=== PATIENT | male | born 1960 ===

== ENCOUNTER 2020-12-06 08:46 | Outpatient (REF) | payer OTHER, SELFPAY ==
[2020-12-06 11:31] LABS: Estimated Average Glucose 137 mg/dL; Hemoglobin A1c % 6.4 %
[2020-12-06 11:49] LABS: Alanine Aminotransferase 20 U/L (0-40); Albumin Level 4.3 g/dL (3.5-5.0); Alkaline Phosphatase 78 U/L (39-117); Anion Gap 14 (12-20); Aspartate Amino Transferase 20 U/L (5-37); Bilirubin Total 1.6 mg/dL (0.0-1.0); Blood Urea Nitrogen 19 mg/dL (9-16); Calcium 9.2 mg/dL (8.4-10.2); Carbon Dioxide 28 mmol/L (22-29); Chloride 101 mmol/L (96-108); Cholesterol 114 mg/dL; Estimated Glomerular Filt Rate > 60; Glucose Fasting 108 mg/dL (60-99); HDL Cholesterol 39 mg/dL; LDL Cholesterol Calculated 60 mg/dl; Potassium 4.4 mmol/L (3.3-5.1); Sodium 139 mmol/L (135-145); Total Protein 7.6 g/dL (6.5-8.0); Triglycerides 76 mg/dL
[2020-12-06 11:58] LABS: Prostate Specific Antigen Scr 1.36 ng/mL (<0.05-4.0); TSH reflex Free T4 0.82 uIU/mL (0.32-4.0)
[2020-12-06 12:05] LABS: Creatinine Urine 125.82 mg/dL; Microalbum/Creatinine Ratio Ur 3.9 ug/mg cr
== END 2020-12-06 08:47 | disposition home or self-care (01) ==
LOC: HO.WFDLDS 08:46
PROVIDERS: Visit Provider Family Medicine
DX: Z00.00 Encounter for general adult medical examination without abnormal findings (principal); Z12.5 Encounter for screening for malignant neoplasm of prostate; I10 Essential (primary) hypertension; E11.9 Type 2 diabetes mellitus without complications; E78.5 Hyperlipidemia, unspecified
CPT/HCPCS: 36415; 80053; 80061; 82043; 83036; 84153; 84443

== ENCOUNTER → 2021-01-13 08:35 | Outpatient (BNVA) | payer OTHER, SELFPAY | PROVIDERS: PCP Family Medicine; Referring Provider Family Medicine; Visit Provider Physician Assistant ==

== ENCOUNTER 2022-02-04 08:13 | Outpatient (REF) | payer OTHER, SELFPAY ==
[2022-02-04 11:58] LABS: Prostate Specific Antigen Scr 1.17 ng/mL (<0.05-4.0); TSH reflex Free T4 0.78 uIU/mL (0.32-4.0)
[2022-02-04 12:07] LABS: Alanine Aminotransferase 20 U/L (0-40); Albumin Level 4.1 g/dL (3.5-5.0); Alkaline Phosphatase 80 U/L (39-117); Anion Gap 11 (12-20); Aspartate Amino Transferase 18 U/L (5-37); Bilirubin Total 1.5 mg/dL (0.0-1.0); Blood Urea Nitrogen 21 mg/dL (9-16); Calcium 9.8 mg/dL (8.4-10.2); Carbon Dioxide 26 mmol/L (22-29); Chloride 104 mmol/L (96-108); Cholesterol 125 mg/dL; Estimated Glomerular Filt Rate > 60; Glucose Fasting 121 mg/dL (60-99); HDL Cholesterol 38 mg/dL; LDL Cholesterol Calculated 71 mg/dl; Potassium 4.4 mmol/L (3.3-5.1); Sodium 137 mmol/L (135-145); Total Protein 7.5 g/dL (6.5-8.0); Triglycerides 81 mg/dL
[2022-02-04 12:26] LABS: Creatinine Urine 163.41 mg/dL; Microalbum/Creatinine Ratio Ur 4.2 ug/mg cr
== END 2022-02-04 08:14 | disposition home or self-care (01) ==
LOC: HO.WFDLDS 08:13
PROVIDERS: Visit Provider Family Medicine
DX: Z00.00 Encounter for general adult medical examination without abnormal findings (principal); Z12.5 Encounter for screening for malignant neoplasm of prostate; I10 Essential (primary) hypertension
CPT/HCPCS: 36415; 80053; 80061; 82043; 84153; 84443

== ENCOUNTER 2023-07-23 12:05 | Outpatient (AMB) | payer OTHER, SELFPAY ==
[2023-07-23 12:13] VITALS: BMI 29.1
--- NOTE | 2023-07-23 12:13 | A.OFFPC_ITS ---
Vital Signs 07/23/23 12:13 Height 5 ft 7 in Weight 186 lb 2 oz BMI 29.1 Intake Visit Reasons: CPE Intake Note: Patient is here for his physical today. Patient is complaining of pain in his hands, and cramping in his legs. Allergies penicillin G Allergy (Unknown, Verified 07/23/23 12:15) Unknown Hayfebrol Allergy (Unknown, Uncoded 07/23/23 12:15) Unknown Tobacco use date assessed: 01/26/22 Fall risk assessment: No Falls in past year Last assessed Fall Risk: 07/23/23 Dental Screening Dental Screen Date: 07/23/23 Did you have a dental visit in the last 12 months?: No Did you have a dental problem in the last 6 months where you did not have access to dental care?: No Was dental information given to patient?: Patient declined HPI CPE HPI Details 63 y/o male presents for a CPE with f/u labs and health maintenance. No recent labs to review. A1c today 07/23/23 is 6.2%. He is on metformin 500mg daily. Pt has complaints of hand pain and leg cramps. He notes he has never had a colonoscopy. Pt has complaints of toenail fungus. [facility] Surgical History (Updated 03/10/22 @ 09:21 by Terri Zapata) History of vasectomy Family History Mother No problems noted. Father No problems noted. 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 Quinn Pineda, Marcie Salcedo, Vu Hooker and colleagues, with an educational oprsha from [employer]. Review of Systems Const Denies chills, Denies fatigue, Denies fever(s), Denies headache(s) and Denies weakness Eyes Denies change in vision ENT Denies dizziness, Denies headache(s), Denies hearing loss, Denies nasal congestion, Denies sinus pain, Denies sinus pressure and Denies sore throat Card Denies chest pain, Denies lightheadedness, Denies dyspnea and Denies other (palpitations) Resp Denies cough, Denies dyspnea and Denies wheezing GI Denies abdominal pain, Denies melena, Denies hematochezia, Denies change in bowel habits, Denies dyspepsia and Denies nausea Denies hematuria and Denies dysuria Musc Denies abnormal gait, Denies myalgias, Denies arthralgias, Denies numbness and Denies tingling Skin/Breast Denies rash, Denies unusual bruising and Denies wounds Neuro Denies abnormal gait, Denies dizziness, Denies headache(s), Denies memory loss, Denies numbness, Denies Sensory deficit (Neuro), Denies tingling and Denies weakness Psych Denies anxiety, Denies depression and Denies memory loss Endo Denies cold intolerance, Denies fatigue, Denies heat intolerance, Denies polydipsia and Denies polyuria Leonel/Lymph Denies easy bleeding and Denies easy bruising Aller/Immun Denies wheezing Physical exam (Primary Care) BMI result Body Mass Index 29.1 Tobacco/Smoking Status: Tobacco use Status Tobacco use date assessed 01/26/22 07/23/23 12:19 Patient Tobacco Use Status Current someday Tobacco 07/23/23 12:19 e-Cigarette/Vaping Use Never Used 07/23/23 12:19 Const General: no acute distress, well developed, alert and awake Nutritional Appearance: well nourished Orientation/consciousness: patient oriented x3 HENMT Head: Yes normocephalic and Yes atraumatic Ears: hearing grossly normal bilaterally and TM's normal bilaterally General nose exam: Normal external nose present and Normal nares present Mouth: Normal oral and palatal mucosa present and moist mucous membranes Teeth and gingiva: dentition normal Throat: Yes posterior oropharynx normal Eyes General: appearance normal, both eyes and all related structures Pupils: Equal, round and reactive pupils present and Pupil accommodation reflex normal EOM: EOMs intact bilaterally Neck Neck: Yes normal visual inspection, Yes no lymphadenopathy and Yes trachea midline Thyroid: Thyroid normal Carotids: no bruits Lymphatic: no lymphadenopathy noted Chest Chest palpation & inspection: normal inspection of the chest Resp Effort & Inspection: normal respiratory effort Auscultation: clear to auscultation bilaterally Cardio Rate: regular rate Rhythm: regular rhythm Heart sounds: S1 normal heart sound present, S2 normal heart sound present, no gallops, no murmurs and no rubs Bruits: no abdominal aortic bruits and no carotid bruits GI Palpation (GI): No Abdominal aortic bruit present, Soft to palpation, nontender, No hepatosplenomegaly present and No Rebound tenderness present Auscultation: normal bowel sounds General: Yes no CVA tenderness Back/Spine/Pelvis Back: no CVA tenderness Cervical Spine: cervical ROM normal and No Cervical spine tenderness Thoracic/Lumbar Spine: thoraco-lumbar ROM normal, No pain with thoraco-lumbar ROM, No thoracic spinal tenderness and No lumbar spinal tenderness Skin Lesions: no lesions Rashes: no rashes Trauma: no lacerations or abrasions Wounds: no wounds Nails: normal Neuro General: patient oriented x3 Cranial nerves: Yes Equal, round and reactive pupils present Cognition (Neuro): normal cognition Gait exam (Neuro): Normal gait present Motor exam (neuro): 5/5 motor strength present throughout Sensory Exam: No Sensory deficit (Neuro) Deep tendon reflexes (DTR's): Right patellar reflex intensity grade: 2+ and Left patellar reflex intensity grade: 2+ Extrem Other: Mildly positive phalens test of wrist General: Yes normal to inspection and No edema Psych Appearance: grossly normal Affect: normal affect Attitude: cooperative Thought process: Normal thought process present Results AMB Hemoglobin A1c AMB Hemoglobin A1c 6.2 % Last Edit by Lovely Mcpherson CMA on 07/23/23 12:36 Results Reviewed Results Reviewed: Laboratory Last Values Hgb A1c (Clinic) 6.2 % (4.0-6.0) H 07/23/23 12:34 Assessment and Plan Assessment & Plan (1) Annual physical exam: Code(s): Z00.00 - Encounter for general adult medical examination without abnormal findings Plan: 63-year-old?male?presents?for?complete?physical?exam (2) Diabetes type 2, controlled: Code(s): E11.9 - Type 2 diabetes mellitus without complications Plan: A1c?6.2%.??Good?control.??Goal?is?less?than?7.0% Continue?current?medication?regimen Diabetic?eye?exam?in?May?showed?no?diabetic?retinopathy (3) Essential hypertension: Code(s): I10 - Essential (primary) hypertension Plan: Blood?pressure?116/58.??Good?control.??Goal?is?less?than?140/90 Continue?current?medication?regimen (4) Leg cramps: Code(s): R25.2 - Cramp and spasm Plan: Likely?secondary?to?overuse?and?muscular?strain Checking?labs?to?rule?out?electrolyte?or?metabolic?or?inflammatory?causes If?labs?negative?and?symptoms?persist,?recommended?physical?therapy (5) Hand pain: Code(s): M79.643 - Pain in unspecified hand Plan: Bilatera l?hand?wrist?discomfort?while?sleeping.??Patient?notes?that?he?hyperflexes?his?h ands?while?sleeping Phalen's?test?mildly?positive Likely?some?carpal?tunnel Gave?him?bilateral?wrist?braces?which?he?can ?wear?loosely?to?prevent?flexion?at?the?wrist If?not?improving,?will?refer?to?hand?surgery (6) Toenail fungus: Code(s): B35.1 - Tinea unguium Plan: Trial?terbinafine?cream (7) Screening for colon cancer: Code(s): Z12.11 - Encounter for screening for malignant neoplasm of colon Plan: Referred?to?GI (8) Screening for prostate cancer: Code(s): Z12.5 - Encounter for screening for malignant neoplasm of prostate Plan: Check?PSA Orders: Orders AMB Hemoglobin A1c Today Z13.9 - Encounter for screening, unspecified Lipid Panel Today Z00.00 - Encounter for general adult medical examination without abnormal findings Prostate Specific Antigen Scr Today Z12.5 - Encounter for screening for malignant neoplasm of prostate UA and rflx microscopic Today Z00.00 - Encounter for general adult medical examination without abnormal findings Erythrocyte Sedimentation Rate Today R25.2 - Cramp and spasm Comprehensive [place]. Panel Fast Today Z00.00 - Encounter for general adult medical examination without abnormal findings Microalbumin, Random (w Creat) Today I10 - Essential (primary) hypertension TSH reflex Free T4 Today Z00.00 - Encounter for general adult medical examination without abnormal findings Referrals Gastroenterology Referral Z12.11 - Encounter for screening for malignant neoplasm of colon Medications: New terbinafine HCl 1% (Athlete's Foot (terbinafine)) 1 appl topical BID 30 grams 2RF 30 days Coding Level of Care Code Est Pt Level 3 (74112) Est Pt Prev Care 40-64y(39522) Diagnoses Annual physical exam Z00.00 Diabetes type 2, controlled E11.9 Essential hypertension I10 Leg cramps R25.2 Hand pain M79.643 Toenail fungus B35.1 Screening for colon cancer Z12.11 Screening for prostate cancer Z12.5
== END 2023-07-23 13:48 | disposition home or self-care (01) ==
PROVIDERS: PCP Family Medicine; Visit Provider Family Medicine
DX: Z00.00 Encounter for general adult medical examination without abnormal findings (principal); E11.9 Type 2 diabetes mellitus without complications; I10 Essential (primary) hypertension; R25.2 Cramp and spasm; M79.641 Pain in right hand; B35.1 Tinea unguium; M79.642 Pain in left hand
CPT/HCPCS: 83036; 99213; 99396

== ENCOUNTER 2023-08-31 07:54 | Outpatient (REF) | payer OTHER, SELFPAY ==
[2023-08-31 11:32] LABS: Appearance Urine Turbid; Color Urine Yellow; Glucose Urine UA Negative (Negative); Leukocyte Esterase Urine Negative (Negative); Nitrite Urine Negative (Negative); Urine Blood Negative (Negative); Urine Ketones Negative (Negative); Urine Protein Negative (Neg-Trace)
[2023-08-31 12:03] LABS: Prostate Specific Antigen Scr 1.59 ng/mL (<0.05-4.0)
[2023-08-31 12:09] LABS: Erythrocyte Sedimentation Rate 22 MM/HR (0-15)
[2023-08-31 12:17] LABS: Creatinine Urine 170.02 mg/dL; Microalbum/Creatinine Ratio Ur 8.2 ug/mg cr (<30)
[2023-08-31 12:20] LABS: Alanine Aminotransferase 22 U/L (0-40); Alkaline Phosphatase 85 U/L (39-117); Anion Gap 14 (12-20); Aspartate Amino Transferase 26 U/L (5-37); Blood Urea Nitrogen 21 mg/dL (9-16); Calcium 9.2 mg/dL (8.4-10.2); Carbon Dioxide 26 mmol/L (22-29); Chloride 105 mmol/L (96-108); Cholesterol 100 mg/dL (<200); Estimated Glomerular Filt Rate > 60; Glucose Fasting 104 mg/dL (60-99); HDL Cholesterol 38 mg/dL (>40); LDL Cholesterol Calculated 49 mg/dL (<100); Potassium 3.9 mmol/L (3.3-5.1); Sodium 141 mmol/L (135-145); Total Protein 7.6 g/dL (6.5-8.0); Triglycerides 68 mg/dL (<150)
[2023-08-31 13:24] LABS: TSH reflex Free T4 0.97 uIU/mL (0.32-4.0)
== END 2023-08-31 07:55 | disposition home or self-care (01) ==
LOC: HO.WFDLDS 07:54
PROVIDERS: Visit Provider Family Medicine
DX: Z00.00 Encounter for general adult medical examination without abnormal findings (principal); Z12.5 Encounter for screening for malignant neoplasm of prostate; I10 Essential (primary) hypertension; R25.2 Cramp and spasm
CPT/HCPCS: 36415; 80053; 80061; 81003; 82043; 82570; 84153; 84443; 85652

== ENCOUNTER 2023-09-16 16:37 | Outpatient (AMB) | payer OTHER, SELFPAY ==
--- NOTE | 2023-09-16 16:41 | MHC.PC.OV ---
Intake Visit Reasons: follow up cpe lab, [phone] Allergies penicillin G Allergy (Unknown, Verified 07/23/23 12:15) Unknown Tobacco use date assessed: 09/16/23 HPI follow up cpe lab, [phone] HPI Details Telemedicine?encounter?to?follow-up?on?carpal?tunnel?and?review?lab Reviewed?labs?with?patient: Mild?HDL?depression.??Encouraged?exercise Lipids?otherwise?show?good?control His?other?labs?were?okay He?has?been?wearing?wrist?braces?and?symptoms?are?controlled?with?this. No?new?complaint PFSH Surgical History History of vasectomy Family History Mother No problems noted. Father No problems noted. 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 Quinn Pineda, Marcie Salcedo, Vu Hooker and colleagues, with an educational porsha from [employer]. Review of Systems Const Denies chills, Denies fatigue, Denies fever(s), Denies headache(s) and Denies weakness ENT Denies dizziness and Denies headache(s) Card Denies chest pain, Denies lightheadedness, Denies dyspnea and Denies other (Palpitations) Resp Denies cough, Denies dyspnea, Denies wheezing and Denies other ( shortness of breath) Musc Denies numbness and Denies tingling Neuro Denies dizziness, Denies headache(s), Denies numbness, Denies tingling, Denies paresthesias and Denies weakness Psych Denies anxiety and Denies depression Endo Denies fatigue Aller/Immun Denies wheezing Physical exam (Primary Care) Tobacco/Smoking Status: Tobacco use Status Tobacco use date assessed 09/16/23 09/16/23 16:44 Patient Tobacco Use Status Current someday Tobacco 09/16/23 16:44 e-Cigarette/Vaping Use Never Used 09/16/23 16:44 Const Other: Telemedicine.??No?exam Telehealth Telehealth Location of provider rendering services: practice address Location of patient: address on file Patient Identification confirmed using: Name, : Yes Telehealth method: voice only Patient verbally consented to treatment: Yes Patient verbally consented to billing insurance company: Yes Minutes spent on Phone/Video with Pt.: 5 Assessment and Plan Assessment & Plan (1) Carpal tunnel syndrome, bilateral: Code(s): G56.03 - Carpal tunnel syndrome, bilateral upper limbs Plan: Much?improved?with?wrist?braces. Continue?wrist?braces.??He?can?let?me?know?if?anything?changes. (2) Diabetes type 2, controlled: Code(s): E11.9 - Type 2 diabetes mellitus without complications Plan: A1c?showed?good?control?at?last?check. Continue?current?medication?regimen Follow-up?in?3 mos (3) Hyperlipidemia: Code(s): E78.5 - Hyperlipidemia, unspecified Plan: He?is?on?atorvastatin?and?lipids?show?good?control?except?HDL?is?mildly?low Encouraged?increased?exercise Coding Level of Care Code Tele Est Pt Level 2 (35599) Diagnoses Carpal tunnel syndrome, bilateral G56.03 Diabetes type 2, controlled E11.9 Hyperlipidemia E78.5
== END 2023-09-16 17:00 ==
PROVIDERS: PCP Family Medicine; Visit Provider Family Medicine
DX: G56.03 Carpal tunnel syndrome, bilateral upper limbs (principal); E11.9 Type 2 diabetes mellitus without complications; E78.5 Hyperlipidemia, unspecified
CPT/HCPCS: 99212

== ENCOUNTER 2023-12-09 08:25 | Outpatient (AMB) | payer OTHER, SELFPAY ==
--- NOTE | 2023-12-09 08:29 | A.OFFPC_ITS ---
Vital Signs 12/09/23 08:33 Height 5 ft 7 in Weight 182 lb BMI 28.5 BP 118/70 Blood Pressure Location Rt brachial Position Sitting Respiration 14 Pulse 62 Pulse Source Pulse Oximeter Temp 98.1 F Temp Source Oral Pulse Oximetry (%) 98 Oxygen Delivery Method Room Air Intake Visit Reasons: Follow-up?diabetes Intake Note: Follow up diabetes Night Nurse Required: No Allergies penicillin G Allergy (Unknown, Verified 12/09/23 08:29) Unknown Tobacco use date assessed: 12/09/23 Dental Screening Dental Screen Date: 12/09/23 Did you have a dental visit in the last 12 months?: Yes Did you have a dental problem in the last 6 months where you did not have access to dental care?: Yes Was dental information given to patient?: Patient has dentist HPI Follow-up?diabetes HPI Details Patient?presents?to?follow-up?diabetes He?notes?that?he?has?been?eating?more?starchy?foods?like?rice?and?potatoes. No?changes?in?his?activity?level He?is?taking?his?metformin?500?mg?once?a?day?as?prescribed A1c?increased?from?6.6%?to?7.6% PFSH Surgical History History of vasectomy Family History Mother No problems noted. Father No problems noted. 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 1. Little interest or pleasure in doing things: not at all 2. Feeling down, depressed, or hopeless: not at all 3. Trouble falling or staying asleep, or sleeping too much: not at all 4. Feeling tired or having little energy: not at all 5. Poor appetite or overeating: not at all 6. Feeling bad about yourself - or that you are a failure or have let yourself or your family down: not at all 7. Trouble concentrating on things, such as reading the newspaper or watching television: not at all 8. Moving or speaking so slowly that other people could have noticed. Or the opposite - being so fidgety or restless that you have been moving around a lot more than usual: not at all 9. Thoughts that you would be better off or of hurting yourself in some way: not at all Total score: 0 Depression Screening Interpretation: Negative Depression Screening Done: Yes 12958 - PHQ-9 Billing: Yes Source: Developed by Drs. Quinn Pineda, Marcie Salcedo, Vu Hooker and colleagues, with an educational porsha from [email or web address]. Thrive Questionnaire Date Thrive assessed: 12/09/23 I am a: Patient What is your living situation today?: I have a steady place to live Within the past 12 months, did the food you bought not last and you didn't have the money to get more?: Never true Within the past 12 months, did you worry whether your food would run out before you got money to buy more?: Never true Do you have trouble paying for medicines?: No Do you have trouble getting transportation to medical appointments?: No Do you have trouble paying your heating and electricity bill?: No Do you have trouble taking care of your child, family member or friend?: No Do you have trouble with day-to-day activities such as bathing, preparing meals, shopping, managing finances, etc.?: No Are you currently unemployed and looking for a job?: No Are you interested in more education?: No Please select the resources that you would like help with: Education Currently or been in a relationship where the following occur: no concerns reported THRIVE Score: 0 AUDIT C Alcohol Use Questionnaire (AUDIT-C) 1. How often do you have a drink containing alcohol?: Monthly or less 2. How many drinks containing alcohol do you have on a typical day when you are drinking?: 3 or 4 3. How often do you have six or more drinks on one occasion?: Less than monthly Total Score: 3 GRAYSON-7 AMB Questionnaire GRAYSON-7 Date GRAYSON - 7 assessed: 12/09/23 Feeling nervous, anxious, or on edge: 0 = Not at all Not being able to stop or control worryin = Not at all Worrying too much about different things: 0 = Not at all Trouble relaxin = Not at all Being so restless that it is hard to sit still: 0 = Not at all Becoming easily annoyed or irritable: 0 = Not at all Feeling afraid as if something awful might happen: 0 = Not at all Total GRAYSON-7 score (0-4 normal; 5-9 mild; 10-14 moderate; 15-21 severe): 0 Source: Developed by Drs. Quinn Pineda, Marcie Salcedo, Vu Hooker and colleagues, with an educational porsha from [email or web address]. GRAYSON-7 Assessment Billing GRAYSON-7 Assessment Tool: GRAYSON-7 Assessment 64994 Physical exam (Primary Care) Vital Signs: Last Vital Signs Temp 98.1 F 12/09/23 08:33 Pulse 62 12/09/23 08:33 Resp 14 12/09/23 08:33 BP 118/70 12/09/23 08:33 Pulse Ox 98 12/09/23 08:33 Oxygen Delivery Method Room Air 12/09/23 08:33 BMI result Body Mass Index 28.5 Tobacco/Smoking Status: Tobacco use Status Tobacco use date assessed 12/09/23 12/09/23 08:38 Patient Tobacco Use Status Current someday Tobacco 12/09/23 08:38 e-Cigarette/Vaping Use Never Used 12/09/23 08:38 PHQ-9: PHQ-9 Score PHQ-9: Total score 0 12/09/23 08:47 Depression Screening Interpretation: Negative Thrive Assessment: Date of Thrive Assessment Date Thrive assessed 12/09/23 12/09/23 08:47 Currently or been in a relationship where the following occur: no concerns reported Results AMB Hemoglobin A1c AMB Hemoglobin A1c 7.6 % Last Edit by Miranda Marcos CMA on 12/09/23 08:51 Assessment and Plan Assessment & Plan (1) Diabetes type 2, controlled: Code(s): E11.9 - Type 2 diabetes mellitus without complications Plan: A1c?increased?from?6.6%?to?7.6%.??Goal?is?less?than?7.0% Will?increase?metformin?to?500?mg?b.i.d. Work?on?a?diet?lower?in?sugars?and?starches Will?follow-up?in?3?months Last?eye?exam?was?in?May.??Advised?to?follow-up?w ith?ophthalmology?annually Orders: Orders AMB Hemoglobin A1c Today E11.9 - Type 2 diabetes mellitus without complications Coding Level of Care Code Est Pt Level 3 (15586) Diagnoses Diabetes type 2, controlled E11.9 Additional Codes GRAYSON-7 Assessment Billing - GRAYSON-7 Assessment Tool: GRAYSON-7 Assessment [id number] ([id number])
[2023-12-09 08:33] VITALS: BP 118/70; PULSE 62; RESP 14; TEMP 36.7; O2SAT 98; BMI 28.5
== END 2023-12-09 08:59 | disposition home or self-care (01) ==
PROVIDERS: PCP Family Medicine; Visit Provider Family Medicine
DX: E11.9 Type 2 diabetes mellitus without complications (principal)
CPT/HCPCS: 83036; 99213

== ENCOUNTER 2024-02-21 09:26 | Outpatient (AMB) | payer OTHER, SELFPAY ==
[2024-02-21 09:33] VITALS: BP 118/74; PULSE 67; O2SAT 97; BMI 28.7
--- NOTE | 2024-02-21 09:33 | MHC.PC.OV ---
Vital Signs 02/21/24 09:33 Height 5 ft 7 in Weight 183 lb 6 oz BMI 28.7 BP 118/74 Blood Pressure Location Lt brachial Position Sitting Pulse 67 Pulse Source Pulse Oximeter Pulse Oximetry (%) 97 Oxygen Delivery Method Room Air Intake Visit Reasons: 4 month f/u Intake Note: Patient is here for follow up on diabetes today. Allergies penicillin G Allergy (Unknown, Verified 02/21/24 09:34) Unknown hayfever Allergy (Mild, Uncoded 02/21/24 09:35) sneezing, watery eyes. Medication List - Last Reconciled 02/21/24 by Bill Hollis MD atorvastatin 20 mg PO DAILY 90 days lisinopril-hydrochlorothiazide 20-12.5 mg 2 tabs PO DAILY metformin 500 mg PO DAILY 90 days terbinafine HCl 1% (Athlete's Foot (terbinafine)) 1 appl topical BID 30 days Tobacco use date assessed: 02/21/24 Fall risk assessment: No Falls in past year Last assessed Fall Risk: 02/21/24 Dental Screening Dental Screen Date: 12/09/23 Did you have a dental visit in the last 12 months?: Yes Did you have a dental problem in the last 6 months where you did not have access to dental care?: No Was dental information given to patient?: Patient has dentist HPI 4 month f/u HPI Details 63 y/o male presents to f/u diabetes. Last A1c 12/09/23 7.6%. Had increased his metformin to 500mg b.i.d. and encouraged him to work on a diet lower in sugars and starches. He notes he has not received the b.i.d. dosing. A1c today improved to 6.7%. He states he has been exercising more and has been trying to watch his diet. HPI Comments History of Present Illness Details Documentation assistance for Bill Hollis MD, was provided by Marty Buenrostro, [employer] on 02/21/2024 at 10:13 AM KATHLEEN. Wade, Dr. Hollis, have read, observed, and verified documentation. [facility] Surgical History History of vasectomy Family History Mother No problems noted. Father No problems noted. 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 Quinn Pnieda, Mracie Salcedo, Vu Hooker and colleagues, with an educational porsha from [employer]. Review of Systems Const Denies chills, Denies fatigue, Denies fever(s), Denies headache(s) and Denies weakness ENT Denies dizziness and Denies headache(s) Card Denies dyspnea Resp Denies cough, Denies dyspnea, Denies wheezing and Denies other (shortness of breath) Musc Denies numbness and Denies tingling Neuro Denies dizziness, Denies headache(s), Denies numbness, Denies tingling and Denies weakness Psych Denies anxiety and Denies depression Endo Denies fatigue Aller/Immun Denies wheezing Physical exam (Primary Care) Vital Signs: Last Vital Signs Pulse 67 02/21/24 09:33 BP 118/74 02/21/24 09:33 Pulse Ox 97 02/21/24 09:33 Oxygen Delivery Method Room Air 02/21/24 09:33 BMI result Body Mass Index 28.7 Tobacco/Smoking Status: Tobacco use Status Tobacco use date assessed 02/21/24 02/21/24 09:36 Patient Tobacco Use Status Current someday Tobacco 02/21/24 09:36 e-Cigarette/Vaping Use Never Used 02/21/24 09:36 Thrive Assessment: Date of Thrive Assessment Date Thrive assessed 12/09/23 02/21/24 09:36 Const General: well developed; No acute distress Nutritional Appearance: well nourished Orientation/consciousness: patient oriented x3 HENMT Head: Yes normocephalic and Yes atraumatic Eyes General: appearance normal, both eyes and all related structures Pupils: Equal, round and reactive pupils present EOM: EOMs intact bilaterally Resp Effort & Inspection: normal respiratory effort Auscultation: clear to auscultation bilaterally Cardio Rate: regular rate Rhythm: regular rhythm Heart sounds: S1 normal heart sound present, S2 normal heart sound present, no gallops, no murmurs and no rubs Neuro General: patient oriented x3 and gait normal Cranial nerves: Yes Equal, round and reactive pupils present Psych Affect: normal affect Results AMB Hemoglobin A1c AMB Hemoglobin A1c 6.7 % Last Edit by Lovely Mcpherson CMA on 02/21/24 10:11 Assessment and Plan Assessment & Plan (1) Diabetes type 2, controlled: Code(s): E11.9 - Type 2 diabetes mellitus without complications Plan: Change?in?medication?was?not?made. Patient?is?still?taking?metformin?500?mg?daily He?made?lifestyle?changes?as?discussed?at?last?visit A1c?now?6.7%?and?goal?is?less?than?7.0% Continue?current?medication?regimen Continue?diabetic?diet,?exercise?and?weight?loss (2) Essential hypertension: Code(s): I10 - Essential (primary) hypertension Plan: Blood?pressure?is?well?controlled.??Goal?is?less?than?140/90 Continue?current?medications Orders: Orders AMB Hemoglobin A1c Today Z13.9 - Encounter for screening, unspecified Coding Level of Care Code Est Pt Level 3 (56606) Diagnoses Diabetes type 2, controlled E11.9 Essential hypertension I10
== END 2024-02-21 10:19 | disposition home or self-care (01) ==
PROVIDERS: PCP Family Medicine; Visit Provider Family Medicine
DX: E11.9 Type 2 diabetes mellitus without complications (principal); I10 Essential (primary) hypertension
CPT/HCPCS: 83036; 99213

== ENCOUNTER 2024-05-24 09:28 | Outpatient (AMB) | payer OTHER, SELFPAY ==
--- NOTE | 2024-05-24 09:40 | A.OFFPC_ITS ---
Vital Signs 05/24/24 09:43 Height 5 ft 7 in Weight 184 lb 8 oz BMI 28.9 BP 100/60 Blood Pressure Location Lt brachial Position Sitting Respiration 12 Pulse 63 Pulse Source Pulse Oximeter Temp 97.7 F Temp Source Tympanic Pulse Oximetry (%) 97 Oxygen Delivery Method Room Air Intake Visit Reasons: f/u diabetes, hypertension Intake Note: F/U for DM and HTN Allergies penicillin G Allergy (Unknown, Verified 05/24/24 09:41) Unknown hayfever Allergy (Mild, Uncoded 02/21/24 09:35) sneezing, watery eyes. Medication List - Last Reconciled 05/24/24 by Bill Hollis MD atorvastatin 20 mg PO DAILY 90 days lisinopril-hydrochlorothiazide 20-12.5 mg 2 tabs PO DAILY metformin 500 mg PO DAILY 90 days terbinafine HCl 1% (Athlete's Foot (terbinafine)) 1 appl topical BID 30 days Tobacco use date assessed: 02/21/24 Dental Screening Dental Screen Date: 12/09/23 HPI f/u diabetes, hypertension HPI Details 64 y/o male presents to f/u diabetes, hy pertension. Last A1c 02/21/24 6.7%. He is on metformin 500mg daily. A1c today 05/24/24 7.2%. Recent diabetic eye exam 2022. Blood pressure today 100/60, 63p. He is on lisinopril-HCTZ 20-12.5mg daily. Has complaints of some ED. HPI Comments History of Present Illness Details Documentation assistance for Bill Hollis MD, was provided by Marty Buenrostro, Electrical Equipment Assembler on 05/24/2024 at 10:[address] Telma CROWE, have read, observed, and verified documentation. [facility] Surgical History History of vasectomy Family History Mother No problems noted. Father No problems noted. 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 How many drinks containing alcohol do you have on a typical day when you are drinking?: 3 or 4 3. How often do you have six or more drinks on one occasion?: Less than monthly Total Score: 2 GRAYSON-7 AMB Questionnaire GRAYSON-7 Date GRAYSON - 7 assessed: 12/09/23 Source: Developed by Drs. Quinn Pineda, Marcie Salcedo, Vu Hooker and colleagues, with an educational porsha from [employer]. Review of Systems Const Denies chills, Denies fatigue, Denies fever(s), Denies headache(s) and Denies weakness ENT Denies dizziness and Denies headache(s) Card Denies dyspnea Resp Denies cough, Denies dyspnea, Denies wheezing and Denies other (shortness of breath) Musc Denies numbness and Denies tingling Neuro Denies dizziness, Denies headache(s), Denies numbness, Denies tingling and Denies weakness Psych Denies anxiety and Denies depression Endo Denies fatigue Aller/Immun Denies wheezing Physical exam (Primary Care) Vital Signs: Last Vital Signs Temp 97.7 F 05/24/24 09:43 Pulse 63 05/24/24 09:43 Resp 12 05/24/24 09:43 BP 100/60 05/24/24 09:43 Pulse Ox 97 05/24/24 09:43 Oxygen Delivery Method Room Air 05/24/24 09:43 BMI result Body Mass Index 28.9 Tobacco/Smoking Status: Tobacco use Status Tobacco use date assessed 02/21/24 05/24/24 09:45 Patient Tobacco Use Status Current someday Tobacco 05/24/24 09:45 e-Cigarette/Vaping Use Never Used 05/24/24 09:45 Thrive Assessment: Date of Thrive Assessment Date Thrive assessed 12/09/23 05/24/24 09:45 Const General: well developed; No acute distress Nutritional Appearance: well nourished Orientation/consciousness: patient oriented x3 HENMT Head: Yes normocephalic and Yes atraumatic Eyes General: appearance normal, both eyes and all related structures Pupils: Equal, round and reactive pupils present EOM: EOMs intact bilaterally Resp Effort & Inspection: normal respiratory effort Auscultation: clear to auscultation bilaterally Cardio Rate: regular rate Rhythm: regular rhythm Heart sounds: S1 normal heart sound present, S2 normal heart sound present, no gallops, no murmurs and no rubs Neuro General: patient oriented x3 and gait normal Cranial nerves: Yes Equal, round and reactive pupils present Psych Affect: normal affect Assessment and Plan Assessment & Plan (1) Diabetes type 2, controlled: Code(s): E11.9 - Type 2 diabetes mellitus without complications Plan: A1c?has?climbed?to?7.2%.??Suboptimal?control.??Goal?is?less?than?7.0% Will?increase?metformin?from?500?mg?daily?to?500?mg?a.m.?and?250?mg?p.m. Continue?to?work?at?diabetic?diet (2) Essential hypertension: Code(s): I10 - Essential (primary) hypertension Plan: Blood?pressure?is?controlled.??Goal?is?less?than?140/90 Continue?current?medications Hydrate?well (3) Erectile dysfunction: Code(s): N52.9 - Male erectile dysfunction, unspecified Plan: Can?try?sildenafil (4) Leg pain: Code(s): M79.606 - Pain in leg, unspecified Plan: Left?knee?pain?over?LCL Keep?quadriceps?strong Ice/heat NSAIDs If?not?improving?will?image?and?start physical?therapy Medications: New sildenafil administer 30 minutes to 4 hours before activity 50 mg PO DAILY 30 days PRN 6 tabs 3RF sexual activity Refilled metformin One?tab (500mg)?in?a.m.?and?1/2?tab?(250mg) in?p.m. orally daily orally daily; 90 days 90 tabs 3RF Coding Level of Care Code Est Pt Level 4 (85861) Diagnoses Diabetes type 2, controlled E11.9 Essential hypertension I10 Erectile dysfunction N52.9 Leg pain M79.606
[2024-05-24 09:43] VITALS: BP 100/60; PULSE 63; RESP 12; TEMP 36.5; O2SAT 97; BMI 28.9
== END 2024-05-24 10:24 | disposition home or self-care (01) ==
PROVIDERS: PCP Family Medicine; Visit Provider Family Medicine
DX: E11.9 Type 2 diabetes mellitus without complications (principal); I10 Essential (primary) hypertension; N52.9 Male erectile dysfunction, unspecified; M79.606 Pain in leg, unspecified
CPT/HCPCS: 99214

== ENCOUNTER 2024-08-18 07:50 | Outpatient (REF) | payer OTHER, SELFPAY ==
[2024-08-18 10:57] LABS: MANUAL DIFF FLAG NO
[2024-08-18 11:03] LABS: Appearance Urine Clear; Color Urine Yellow; Glucose Urine UA Negative (Negative); Leukocyte Esterase Urine Negative (Negative); Nitrite Urine Negative (Negative); Urine Blood Negative (Negative); Urine Ketones Negative (Negative); Urine Protein Negative (Neg-Trace)
[2024-08-18 11:04] LABS: Basophils Absolute Auto 0.1 X10*3/uL (0.0-0.2); Basophils Percent Auto 0.6 % (0-2); Eosinophils Absolute Auto 0.3 X10*3/uL (0.0-0.4); Eosinophils Percent Auto 4.1 % (0-4); Hematocrit 41.9 % (42.0-52.0); Hemoglobin 13.9 g/dl (14.0-18.0); Imm Gran Abs Auto 0.04 X10*3/uL (0.00-0.03); Imm Gran Pct Auto 0.5 % (0.0-0.4); Lymphocytes Absolute Auto 1.9 X10*3/uL (1.2-4.9); Lymphocytes Percent Auto 23.2 % (20-40); Mean Corpuscular HGB Conc 33.2 g/dl (31.0-36.0); Mean Corpuscular Volume 84.3 fL (80.0-98.0); Mean Platelet Volume 10.2 fL (9.4-12.4); Monocytes Absolute Auto 0.7 X10*3/uL (0.1-1.2); Monocytes Percent Auto 8.9 % (2-11); Neutrophils Absolute Auto 5.2 x10*3/uL (2.0-8.3); Neutrophils Percent Auto 62.7 % (45-73); Platelet Count 286 X10*3/uL (160-400); Red Blood Count 4.97 X10*6/uL (4.60-5.80); Red Cell Distribution Width 13.2 % (11.0-16.0); White Blood Count 8.2 X10*3/uL (4.8-10.8)
[2024-08-18 11:23] LABS: Alanine Aminotransferase 25 U/L (0-40); Albumin Level 4.2 g/dL (3.5-5.0); Alkaline Phosphatase 81 U/L (39-117); Anion Gap 11 (12-20); Aspartate Amino Transferase 42 U/L (5-37); Bilirubin Total 1.7 mg/dL (0.0-1.0); Blood Urea Nitrogen 20 mg/dL (9-16); Calcium 9.5 mg/dL (8.4-10.2); Carbon Dioxide 27 mmol/L (22-29); Chloride 105 mmol/L (96-108); Cholesterol 115 mg/dL (<200); Estimated Glomerular Filt Rate > 60; Glucose Fasting 121 mg/dL (60-99); HDL Cholesterol 42 mg/dL (>40); LDL Cholesterol Calculated 55 mg/dL (<100); Potassium 4.1 mmol/L (3.3-5.1); Sodium 139 mmol/L (135-145); Total Protein 7.7 g/dL (6.5-8.0); Triglycerides 91 mg/dL (<150)
[2024-08-18 11:43] LABS: TSH reflex Free T4 0.79 uIU/mL (0.32-4.0)
[2024-08-18 11:46] LABS: Prostate Specific Antigen Scr 1.89 ng/mL (<0.05-4.0)
[2024-08-18 11:54] LABS: Creatinine Urine 168.02 mg/dL; Microalbum/Creatinine Ratio Ur 4.1 ug/mg cr (<30)
== END 2024-08-18 07:51 | disposition home or self-care (01) ==
LOC: HO.WFDLDS 07:50
PROVIDERS: Visit Provider Family Medicine
DX: Z00.00 Encounter for general adult medical examination without abnormal findings (principal); I10 Essential (primary) hypertension; Z12.5 Encounter for screening for malignant neoplasm of prostate
CPT/HCPCS: 36415; 80053; 80061; 81003; 82043; 82570; 84153; 84443; 85025

== ENCOUNTER 2024-08-23 08:28 | Outpatient (AMB) | payer OTHER, SELFPAY ==
--- NOTE | 2024-08-23 08:38 | A.OFFPC_ITS ---
Vital Signs 08/23/24 08:39 Height 5 ft 7 in Weight 183 lb 2 oz BMI 28.7 BP 100/60 Blood Pressure Location Rt brachial Position Sitting Respiration 12 Pulse 59 Pulse Source Pulse Oximeter Temp 98.0 F Temp Source Oral Pulse Oximetry (%) 97 Oxygen Delivery Method Room Air Intake Visit Reasons: f/u diabetes, HTN Intake Note: f/u dm Allergies penicillin G Allergy (Unknown, Verified 08/23/24 08:38) Unknown hayfever Allergy (Mild, Uncoded 02/21/24 09:35) sneezing, watery eyes. Medication List - Last Reconciled 08/23/24 by Bill Hollis MD atorvastatin 20 mg PO DAILY 90 days lisinopril-hydrochlorothiazide 20-12.5 mg 2 tabs PO DAILY metformin One?tab (500mg)?in?a.m.?and?1/2?tab?(250mg) in?p.m. orally daily orally daily; 90 days sildenafil 50 mg PO DAILY PRN 30 days terbinafine HCl 1% (Athlete's Foot (terbinafine)) 1 appl topical BID 30 days Tobacco use date assessed: 02/21/24 Dental Screening Dental Screen Date: 12/09/23 HPI f/u diabetes, HTN HPI Details 64 y/o male presents to f/u diabetes, hy pertension. Last A1c 7.2%. Had increased his metformin last office visit. A1c today 08/23/24 7.0%. Blood pressure today 100/60, 59p. He is on lisinopril-HCTZ 20-.12.5mg daily. [facility] Surgical History History of vasectomy Family History Mother No problems noted. Father No problems noted. 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 1. Little interest or pleasure in doing things: not at all 2. Feeling down, depressed, or hopeless: not at all 3. Trouble falling or staying asleep, or sleeping too much: not at all 4. Feeling tired or having little energy: not at all 5. Poor appetite or overeating: not at all 6. Feeling bad about yourself - or that you are a failure or have let yourself or your family down: not at all 7. Trouble concentrating on things, such as reading the newspaper or watching television: not at all 8. Moving or speaking so slowly that other people could have noticed. Or the opposite - being so fidgety or restless that you have been moving around a lot more than usual: not at all 9. Thoughts that you would be better off or of hurting yourself in some way: not at all Total score: 0 Source: Developed by Drs. Quinn Pineda, Marcie Salcedo, Vu Hooker and colleagues, with an educational porsha from [employer]. Thrive Questionnaire Date Thrive assessed: 12/09/23 I am a: Patient What is your living situation today?: I have a steady place to live Within the past 12 months, did the food you bought not last and you didn't have the money to get more?: Never true Within the past 12 months, did you worry whether your food would run out before you got money to buy more?: Never true Do you have trouble paying for medicines?: No Do you have trouble getting transportation to medical appointments?: No Do you have trouble paying your heating and electricity bill?: No Do you have trouble taking care of your child, family member or friend?: No Do you have trouble with day-to-day activities such as bathing, preparing meals, shopping, managing finances, etc.?: No Are you currently unemployed and looking for a job?: No Are you interested in more education?: No Please select the resources that you would like help with: None Currently or been in a relationship where the following occur: I choose not to answer THRIVE Score: 0 AUDIT C Alcohol Use Questionnaire (AUDIT-C) 1. How often do you have a drink containing alcohol?: 2-4 times a month Total Score: 2 GRAYSON-7 AMB Questionnaire GRAYSON-7 Date GRAYSON - 7 assessed: 12/09/23 Feeling nervous, anxious, or on edge: 0 = Not at all Not being able to stop or control worryin = Not at all Worrying too much about different things: 0 = Not at all Trouble relaxin = Not at all Being so restless that it is hard to sit still: 0 = Not at all Becoming easily annoyed or irritable: 0 = Not at all Feeling afraid as if something awful might happen: 0 = Not at all Total GRAYSON-7 score (0-4 normal; 5-9 mild; 10-14 moderate; 15-21 severe): 0 Source: Developed by Drs. Quinn Pineda, Marcie Salcedo, Vu Hooker and colleagues, with an educational porsha from [employer]. Review of Systems Const Denies chills, Denies fatigue, Denies fever(s), Denies headache(s) and Denies weakness ENT Denies dizziness and Denies headache(s) Card Denies dyspnea Resp Denies cough, Denies dyspnea, Denies wheezing and Denies other (shortness of breath) Musc Denies numbness and Denies tingling Neuro Denies dizziness, Denies headache(s), Denies numbness, Denies tingling and Denies weakness Psych Denies anxiety and Denies depression Endo Denies fatigue Aller/Immun Denies wheezing Physical exam (Primary Care) Vital Signs: Last Vital Signs Temp 98.0 F 08/23/24 08:39 Pulse 59 08/23/24 08:39 Resp 12 08/23/24 08:39 BP 100/60 08/23/24 08:39 Pulse Ox 97 08/23/24 08:39 Oxygen Delivery Method Room Air 08/23/24 08:39 BMI result Body Mass Index 28.7 Tobacco/Smoking Status: Tobacco use Status Tobacco use date assessed 02/21/24 08/23/24 08:42 Patient Tobacco Use Status Current someday Tobacco 08/23/24 08:42 e-Cigarette/Vaping Use Never Used 08/23/24 08:42 PHQ-9: PHQ-9 Score PHQ-9: Total score 0 08/23/24 08:42 Thrive Assessment: Date of Thrive Assessment Date Thrive assessed 12/09/23 08/23/24 08:42 Currently or been in a relationship where the following occur: I choose not to answer Const General: well developed; No acute distress Nutritional Appearance: well nourished Orientation/consciousness: patient oriented x3 HENMT Head: Yes normocephalic and Yes atraumatic Eyes General: appearance normal, both eyes and all related structures Pupils: Equal, round and reactive pupils present EOM: EOMs intact bilaterally Resp Effort & Inspection: normal respiratory effort Neuro General: patient oriented x3 and gait normal Cranial nerves: Yes Equal, round and reactive pupils present Psych Affect: normal affect Coding Level of Care Code Est Pt Level 3 (71403) Diagnoses Diabetes type 2, controlled E11.9 Essential hypertension I10 Assessment & Plan Assessment & Plan (1) Diabetes type 2, controlled: Code(s): E11.9 - Type 2 diabetes mellitus without complications Category: Medical Plan: A1c?today?is?at?7.0%?and?this?is?down?from? 7.2%.??Fairly?good?control.??Goal?is?less?than?7.0% Continue?metformin Encouraged?diet?lower?in?sugars?and?starches.??Encouraged?weight?loss Patient?had?diabetic?retinal?exam?in?July.??No?diabetic?retinopathy. (2) Essential hypertension: Code(s): I10 - Essential (primary) hypertension Category: Medical Plan: Blood?pressure?is?well?controlled.??Goal?is?less?than?140/90 Continue?current?medication?regimen Orders: Orders Comprehensive [place]. Panel Fast Today Z00.00 - Encounter for general adult medical examination without abnormal findings Lipid Panel Today Z00.00 - Encounter for general adult medical examination without abnormal findings TSH reflex Free T4 Today Z00.00 - Encounter for general adult medical examination without abnormal findings Microalbumin, Random (w Creat) Today I10 - Essential (primary) hypertension Complete Blood Count Auto Diff Today Z00.00 - Encounter for general adult medical examination without abnormal findings UA and rflx microscopic Today Z00.00 - Encounter for general adult medical examination without abnormal findings Prostate Specific Antigen Scr Today Z12.5 - Encounter for screening for malignant neoplasm of prostate Medications: Refilled sildenafil administer 30 minutes to 4 hours before activity 50 mg PO DAILY 30 days PRN 14 tabs 3RF sexual activity
[2024-08-23 08:39] VITALS: BP 100/60; PULSE 59; RESP 12; TEMP 36.7; O2SAT 97; BMI 28.7
== END 2024-08-23 08:54 | disposition home or self-care (01) ==
PROVIDERS: PCP Family Medicine; Visit Provider Family Medicine
DX: E11.9 Type 2 diabetes mellitus without complications (principal); I10 Essential (primary) hypertension

== ENCOUNTER 2024-12-29 07:49 | Outpatient (REF) | payer OTHER, SELFPAY ==
[2024-12-29 11:06] LABS: MANUAL DIFF FLAG NO
[2024-12-29 11:22] LABS: Appearance Urine Clear; Color Urine Yellow; Glucose Urine UA Negative (Negative); Leukocyte Esterase Urine Trace (Negative); Nitrite Urine Negative (Negative); PH 6.5 (5.0-9.0); Specific Gravity - Urine 1.015 (1.005-1.025); UMIC TRIGGER UA YES; Urine Blood Negative (Negative); Urine Ketones Negative (Negative); Urine Protein Negative (Neg-Trace)
[2024-12-29 11:30] LABS: Bacteria Urine None Seen (None Seen); Hyaline Casts Urine 0-2 /LPF (0-2); RBC Urine 0-2 /HPF (0-2); Squamous Epithelial Cell Urine 0-2 /HPF (0-2); WBC Urine 0-5 /HPF (0-5)
[2024-12-29 11:30] LABS: Basophils Absolute Auto 0.1 X10*3/uL (0.0-0.2); Basophils Percent Auto 0.7 % (0-2); Eosinophils Absolute Auto 0.3 X10*3/uL (0.0-0.4); Eosinophils Percent Auto 3.5 % (0-4); Hematocrit 41.8 % (42.0-52.0); Imm Gran Abs Auto 0.05 X10*3/uL (0.00-0.03); Imm Gran Pct Auto 0.6 % (0.0-0.4); Lymphocytes Percent Auto 22.5 % (20-40); Mean Corpuscular HGB Conc 33.5 g/dl (31.0-36.0); Mean Corpuscular Hemoglobin 27.8 pg (27.0-33.0); Mean Corpuscular Volume 82.9 fL (80.0-98.0); Monocytes Absolute Auto 0.7 X10*3/uL (0.1-1.2); Neutrophils Absolute Auto 5.7 x10*3/uL (2.0-8.3); Neutrophils Percent Auto 64.7 % (45-73); Platelet Count 284 X10*3/uL (160-400); Red Blood Count 5.04 X10*6/uL (4.60-5.80); Red Cell Distribution Width 13.3 % (11.0-16.0); White Blood Count 8.8 X10*3/uL (4.8-10.8)
[2024-12-29 11:44] LABS: Alanine Aminotransferase 25 U/L (0-40); Albumin Level 4.2 g/dL (3.5-5.0); Anion Gap 12 (12-20); Aspartate Amino Transferase 36 U/L (5-37); Bilirubin Total 1.6 mg/dL (0.0-1.0); Blood Urea Nitrogen 16 mg/dL (9-16); Calcium 9.7 mg/dL (8.4-10.2); Carbon Dioxide 27 mmol/L (22-29); Chloride 104 mmol/L (96-108); Cholesterol 120 mg/dL (<200); Estimated Glomerular Filt Rate > 60; Glucose Fasting 128 mg/dL (60-99); HDL Cholesterol 44 mg/dL (>40); LDL Cholesterol Calculated 57 mg/dL (<100); Sodium 139 mmol/L (135-145); Total Protein 7.6 g/dL (6.5-8.0); Triglycerides 98 mg/dL (<150)
[2024-12-29 11:50] LABS: Prostate Specific Antigen Scr 3.19 ng/mL (<0.05-4.0)
[2024-12-29 11:51] LABS: TSH reflex Free T4 1.13 uIU/mL (0.32-4.0)
[2024-12-29 12:11] LABS: Creatinine Urine 143.75 mg/dL; Microalbum/Creatinine Ratio Ur 6.2 ug/mg cr (<30)
[2024-12-29 19:48] LABS: Alkaline Phosphatase 87 U/L (39-117)
== END 2024-12-29 07:50 | disposition home or self-care (01) ==
LOC: HO.WFDLDS 07:49
PROVIDERS: Visit Provider Family Medicine
DX: Z00.00 Encounter for general adult medical examination without abnormal findings (principal); Z12.5 Encounter for screening for malignant neoplasm of prostate; I10 Essential (primary) hypertension
CPT/HCPCS: 36415; 80053; 80061; 81001; 82043; 82570; 84153; 84443; 85025

== ENCOUNTER 2025-01-02 09:01 | Outpatient (AMB) | payer OTHER, SELFPAY ==
--- NOTE | 2025-01-02 09:12 | A.OFFPC_ITS ---
Vital Signs 01/02/25 09:24 Height 5 ft 7 in Weight 184 lb 4 oz BMI 28.9 BP 114/66 Blood Pressure Location Rt brachial Position Sitting Respiration 12 Pulse 63 Pulse Source Pulse Oximeter Temp 98.2 F Temp Source Oral Pulse Oximetry (%) 97 Oxygen Delivery Method Room Air Intake Visit Reasons: CPE with f/u labs and health maint Intake Note: patient is scheduled for cpe Allergies penicillin G Allergy (Unknown, Verified 01/02/25 09:27) Unknown hayfever Allergy (Mild, Uncoded 02/21/24 09:35) sneezing, watery eyes. Medication List - Last Reconciled 01/02/25 by Bill Hollis MD atorvastatin 20 mg PO DAILY 90 days lisinopril-hydrochlorothiazide 20-12.5 mg 2 tabs PO DAILY metformin One tab, 500mg, in am and 1/2 tab, 250mg, in pm, orally daily 90 days sildenafil 50 mg PO DAILY PRN 30 days terbinafine HCl 1% (Athlete's Foot (terbinafine)) 1 appl topical BID 30 days Tobacco use date assessed: 02/21/24 Dental Screening Dental Screen Date: 12/09/23 HPI CPE with f/u labs and health maint HPI Details 64 y/o male presents for a CPE with f/u labs and health maint. A1c today 6.7%. He is on metformin. BP today 114/66, 63p. He is on lisinopril-HCTZ 20-12.5mg daily. Labs drawn 12/29/24. Reviewed labs with pt. Borderline anemia. Triglycerides 98. TC 120. LDL 57. HDL 44. He is on artovastatin 20mg daily. PSA 3.19. TSH 1.13. He reports hearing changes. HPI Comments History of Present Illness Details Documentation assistance for Bill Hollis MD, was provided by Marty Buenrostro,? Material Requirements Planning Manager on 01/02/2025 at 9:39 AM EST. Ol[place], Dr. oHllis, have read, observed, and verified documentation. ?? [facility] Surgical History History of vasectomy Family History Mother No problems noted. Father No problems noted. 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 1. Little interest or pleasure in doing things: several days 2. Feeling down, depressed, or hopeless: not at all 3. Trouble falling or staying asleep, or sleeping too much: not at all 4. Feeling tired or having little energy: several days 5. Poor appetite or overeating: not at all 6. Feeling bad about yourself - or that you are a failure or have let yourself or your family down: not at all 7. Trouble concentrating on things, such as reading the newspaper or watching television: not at all 8. Moving or speaking so slowly that other people could have noticed. Or the opposite - being so fidgety or restless that you have been moving around a lot more than usual: not at all 9. Thoughts that you would be better off or of hurting yourself in some way: not at all Total score: 2 Depression Screening Interpretation: Negative Depression Screening Done: Yes [id number] - PHQ-9 Billing: Yes Source: Developed by Drs. Quinn Pineda, Marcie Salcedo, Vu Hooker and colleagues, with an educational porsha from [employer]. Thrive Questionnaire Date Thrive assessed: 01/02/25 I am a: Patient What is your living situation today?: I have a steady place to live Within the past 12 months, did the food you bought not last and you didn't have the money to get more?: Never true Within the past 12 months, did you worry whether your food would run out before you got money to buy more?: Never true Do you have trouble paying for medicines?: No Do you have trouble getting transportation to medical appointments?: No Do you have trouble paying your heating and electricity bill?: No Do you have trouble taking care of your child, family member or friend?: No Do you have trouble with day-to-day activities such as bathing, preparing meals, shopping, managing finances, etc.?: No Are you currently unemployed and looking for a job?: No Are you interested in more education?: No Please select the resources that you would like help with: None Currently or been in a relationship where the following occur: No concerns reported THRIVE Score: 0 AUDIT C Alcohol Use Questionnaire (AUDIT-C) 1. How often do you have a drink containing alcohol?: 2-4 times a month 2. How many drinks containing alcohol do you have on a typical day when you are drinking?: 3 or 4 3. How often do you have six or more drinks on one occasion?: Monthly Total Score: 5 Score Reviewed/Action Taken: Yes GRAYSON-7 AMB Questionnaire GRAYSON-7 Date GRAYSON - 7 assessed: 01/02/25 Feeling nervous, anxious, or on edge: 0 = Not at all Not being able to stop or control worryin = Not at all Worrying too much about different things: 1 = Several days Trouble relaxin = Not at all Being so restless that it is hard to sit still: 0 = Not at all Becoming easily annoyed or irritable: 0 = Not at all Feeling afraid as if something awful might happen: 0 = Not at all Total GRAYSON-7 score (0-4 normal; 5-9 mild; 10-14 moderate; 15-21 severe): 1 Source: Developed by Drs. Quinn Pineda, Marcie Salcedo, Vu Hooker and colleagues, with an educational porsha from [employer]. GRAYSON-7 Assessment Billing GRAYSON-7 Assessment Tool: GRAYSON-7 Assessment [id number] Review of Systems Const Denies chills, Denies fatigue, Denies fever(s), Denies headache(s) and Denies weakness Eyes Denies change in vision ENT Denies dizziness, Denies headache(s), Denies hearing loss, Denies nasal congestion, Denies sinus pain, Denies sinus pressure and Denies sore throat Card Denies chest pain, Denies lightheadedness, Denies dyspnea and Denies other (palpitations) Resp Denies cough, Denies dyspnea and Denies wheezing GI Denies abdominal pain, Denies melena, Denies hematochezia, Denies change in bowel habits, Denies dyspepsia and Denies nausea Denies hematuria and Denies dysuria Musc Denies abnormal gait, Denies myalgias, Denies arthralgias, Denies numbness and Denies tingling Skin/Breast Denies rash, Denies unusual bruising and Denies wounds Neuro Denies abnormal gait, Denies dizziness, Denies headache(s), Denies memory loss, Denies numbness, Denies Sensory deficit (Neuro), Denies tingling and Denies weakness Psych Denies anxiety, Denies depression and Denies memory loss Endo Denies cold intolerance, Denies fatigue, Denies heat intolerance, Denies polydipsia and Denies polyuria Leonel/Lymph Denies easy bleeding and Denies easy bruising Aller/Immun Denies wheezing Physical exam (Primary Care) Vital Signs: Last Vital Signs Temp 98.2 F 01/02/25 09:24 Pulse 63 01/02/25 09:24 Resp 12 01/02/25 09:24 BP 114/66 01/02/25 09:24 Pulse Ox 97 01/02/25 09:24 Oxygen Delivery Method Room Air 01/02/25 09:24 BMI result Body Mass Index 28.9 Tobacco/Smoking Status: Tobacco use Status Tobacco use date assessed 02/21/24 01/02/25 09:13 Patient Tobacco Use Status Current someday Tobacco 01/02/25 09:13 e-Cigarette/Vaping Use Never Used 01/02/25 09:13 PHQ-9: PHQ-9 Score PHQ-9: Total score 2 01/02/25 09:39 Depression Screening Interpretation: Negative Thrive Assessment: Date of Thrive Assessment Date Thrive assessed 01/02/25 01/02/25 09:28 Currently or been in a relationship where the following occur: No concerns reported Const General: no acute distress, well developed, alert and awake Nutritional Appearance: well nourished Orientation/consciousness: patient oriented x3 HENMT Head: Yes normocephalic and Yes atraumatic Ears: hearing grossly normal bilaterally and TM's normal bilaterally General nose exam: Normal external nose present and Normal nares present Mouth: Normal oral and palatal mucosa present and moist mucous membranes Teeth and gingiva: dentition normal Throat: Yes posterior oropharynx normal Eyes General: appearance normal, both eyes and all related structures Pupils: Equal, round and reactive pupils present and Pupil accommodation reflex normal EOM: EOMs intact bilaterally Neck Neck: Yes normal visual inspection, Yes no lymphadenopathy and Yes trachea midline Thyroid: Thyroid normal Carotids: no bruits Lymphatic: no lymphadenopathy noted Chest Chest palpation & inspection: normal inspection of the chest Resp Effort & Inspection: normal respiratory effort Auscultation: clear to auscultation bilaterally Cardio Rate: regular rate Rhythm: regular rhythm Heart sounds: S1 normal heart sound present, S2 normal heart sound present, no gallops, no murmurs and no rubs Bruits: no abdominal aortic bruits and no carotid bruits GI Palpation (GI): No Abdominal aortic bruit present, Soft to palpation, nontender, No hepatosplenomegaly present and No Rebound tenderness present Auscultation: normal bowel sounds General: Yes no CVA tenderness Back/Spine/Pelvis Back: no CVA tenderness Cervical Spine: cervical ROM normal and No Cervical spine tenderness Thoracic/Lumbar Spine: thoraco-lumbar ROM normal, No pain with thoraco-lumbar ROM, No thoracic spinal tenderness and No lumbar spinal tenderness Skin Lesions: no lesions Rashes: no rashes Trauma: no lacerations or abrasions Wounds: no wounds Nails: normal Neuro General: patient oriented x3 Cranial nerves: Yes Equal, round and reactive pupils present Cognition (Neuro): normal cognition Gait exam (Neuro): Normal gait present Motor exam (neuro): 5/5 motor strength present throughout Sensory Exam: No Sensory deficit (Neuro) Deep tendon reflexes (DTR's): Right patellar reflex intensity grade: 2+ and Left patellar reflex intensity grade: 2+ Extrem General: Yes normal to inspection and No edema Psych Appearance: grossly normal Affect: normal affect Attitude: cooperative Thought process: Normal thought process present Coding Level of Care Code Est Pt Level 3 (86988) Est Pt Prev Care >65y(68242) Diagnoses Annual physical exam Z00.00 Essential hypertension I10 Borderline anemia D64.9 Decreased hearing H91.90 Hyperlipidemia E78.5 Diabetes type 2, controlled E11.9 Screening for prostate cancer Z12.5 Screening for colon cancer Z12.11 Additional Codes GRAYSON-7 Assessment Billing - GRAYSON-7 Assessment Tool: GRAYSON-7 Assessment 92000 ([id number]) PHQ-9 - 34561 - PHQ-9 Billing: Yes ([id number]) Assessment & Plan Assessment & Plan (1) Annual physical exam: Code(s): Z00.00 - Encounter for general adult medical examination without abnormal findings Category: Medical Plan: 64-year-old?male?presents?for?complete?physical?exam Encouraged?healthy?diet?with?active?lifestyle?and?plenty?of?exercise (2) Essential hypertension: Code(s): I10 - Essential (primary) hypertension Category: Medical Plan: Blood?pressure?is?controlled.??Goal?is?less?than?140/90 Continue?current?medication (3) Borderline anemia: Code(s): D64.9 - Anemia, unspecified Category: Medical Plan: Stable?borderline?anemia Will?recheck?with?next?blood?draw (4) Decreased hearing: Code(s): H91.90 - Unspecified hearing loss, unspecified ear Category: Medical Plan: Patient?notes?ongoing?decreased?hearing Referred?to?audiology (5) Hyperlipidemia: Code(s): E78.5 - Hyperlipidemia, unspecified Category: Medical Plan: Lipids?are?well?controlled. Continue?atorvastatin (6) Diabetes type 2, controlled: Code(s): E11.9 - Type 2 diabetes mellitus without complications Category: Medical Plan: A1c?improved?from?7%?to?6.8%. Continue?current?medication?regimen?and?diabetic?diet (7) Screening for prostate cancer: Code(s): Z12.5 - Encounter for screening for malignant neoplasm of prostate Category: Medical Plan: Is?a?still?within?normal?range?but?has?increased?significantly. He?notes?that?he?had?sexual?activity?prior?to?blood?draw Will?have?him?repeat?this (8) Screening for colon cancer: Code(s): Z12.11 - Encounter for screening for malignant neoplasm of colon Category: Medical Plan: Patient?was?referred?for?colonoscopy?in?2020?and?had?initial?visit?but?did?n ot?have?the?actual?test. Referred?back?to?GI Orders: Orders Complete Blood Count Auto Diff Today D64.9 - Anemia, unspecified, Z00.00 - Encounter for general adult medical examination without abnormal findings Comprehensive Met. Panel Today D64.9 - Anemia, unspecified Prostate Specific Antigen Scr Today Z12.5 - Encounter for screening for malignant neoplasm of prostate Referrals Audiology Referral H91.90 - Unspecified hearing loss, unspecified ear Gastroenterology Referral Z12.11 - Encounter for screening for malignant neoplasm of colon
[2025-01-02 09:24] VITALS: BP 114/66; PULSE 63; RESP 12; TEMP 36.8; O2SAT 97; BMI 28.9
== END 2025-01-02 09:59 | disposition home or self-care (01) ==
LOC: HO.HMCFM 09:02
PROVIDERS: PCP Family Medicine; Visit Provider Family Medicine
DX: E11.9 Type 2 diabetes mellitus without complications (principal)

== ENCOUNTER → 2025-01-02 09:01 | Outpatient (BNVA) | payer OTHER, SELFPAY | PROVIDERS: PCP Family Medicine; Visit Provider Family Medicine | DX: Z00.00 Encounter for general adult medical examination without abnormal findings (principal); I10 Essential (primary) hypertension; D64.9 Anemia, unspecified; H91.90 Unspecified hearing loss, unspecified ear; E78.5 Hyperlipidemia, unspecified; E11.9 Type 2 diabetes mellitus without complications; Z79.84 Long term (current) use of oral hypoglycemic drugs; Z79.899 Other long term (current) drug therapy | CPT/HCPCS: 83036; 96127 ==

== ENCOUNTER 2025-01-31 07:50 | Outpatient (REF) | payer OTHER, SELFPAY | END 2025-01-31 07:51 | disposition home or self-care (01) | LOC: HO.SH 07:50 | PROVIDERS: Visit Provider Family Medicine | DX: Z01.118 Encounter for examination of ears and hearing with other abnormal findings (principal); H90.3 Sensorineural hearing loss, bilateral | CPT/HCPCS: 92557 ==

== ENCOUNTER 2025-04-04 10:07 | Outpatient (REF) | payer OTHER, SELFPAY ==
[2025-04-04 11:21] LABS: MANUAL DIFF FLAG NO
[2025-04-04 11:24] LABS: Hematocrit 42.1 % (42.0-52.0); Hemoglobin 14.0 g/dl (14.0-18.0); Imm Gran Abs Auto 0.16 X10*3/uL (0.00-0.03); Imm Gran Pct Auto 1.7 % (0.0-0.4); Lymphocytes Absolute Auto 2.4 X10*3/uL (1.2-4.9); Mean Corpuscular HGB Conc 33.3 g/dl (31.0-36.0); Mean Corpuscular Hemoglobin 27.9 pg (27.0-33.0); Mean Corpuscular Volume 84.0 fL (80.0-98.0); NRBC Abs Auto 0.000 X10*3/uL (0.0-0.012); NRBC Pct Auto 0.0 /100WBC (0.0-0.2); Platelet Count 296 X10*3/uL (160-400); Red Blood Count 5.01 X10*6/uL (4.60-5.80); White Blood Count 9.6 X10*3/uL (4.8-10.8)
[2025-04-04 11:24] LABS: Appearance Urine Clear; Glucose Urine UA Negative (Negative); PH 6.5 (5.0-9.0); Specific Gravity - Urine 1.020 (1.005-1.025)
[2025-04-04 11:55] LABS: Alanine Aminotransferase 50 U/L (0-40); Albumin Level 4.1 g/dL (3.5-5.0); Alkaline Phosphatase 86 U/L (39-117); Anion Gap 11 (12-20); Aspartate Amino Transferase 37 U/L (5-37); Blood Urea Nitrogen 18 mg/dL (9-16); Calcium 9.5 mg/dL (8.4-10.2); Carbon Dioxide 29 mmol/L (22-29); Chloride 104 mmol/L (96-108); Estimated Glomerular Filt Rate > 60; Potassium 3.9 mmol/L (3.3-5.1); Sodium 140 mmol/L (135-145); Total Protein 7.4 g/dL (6.5-8.0)
== END 2025-04-04 10:08 | disposition home or self-care (01) ==
LOC: HO.WFDLDS 10:07
PROVIDERS: Visit Provider Family Medicine
DX: Z00.00 Encounter for general adult medical examination without abnormal findings (principal); D64.9 Anemia, unspecified; Z12.5 Encounter for screening for malignant neoplasm of prostate
CPT/HCPCS: 36415; 80053; 81003; 84153; 85025

== ENCOUNTER 2025-04-09 08:35 | Outpatient (AMB) | payer OTHER, SELFPAY ==
--- NOTE | 2025-04-09 08:45 | MHC.PC.OV ---
Vital Signs 04/09/25 08:46 Height 5 ft 7 in Weight 185 lb 4 oz BMI 29.0 BP 118/72 Blood Pressure Location Rt brachial Position Sitting Respiration 16 Pulse 60 Pulse Source Pulse Oximeter Temp 98.0 F Temp Source Oral Pulse Oximetry (%) 95 Oxygen Delivery Method Room Air Intake Visit Reasons: f/u diabetes, HTN Intake Note: patient is scheduled to follow up for dm and htn Claim Service Representative Required: No Allergies penicillin G Allergy (Unknown, Verified 04/09/25 08:45) Unknown hayfever Allergy (Mild, Uncoded 02/21/24 09:35) sneezing, watery eyes. Tobacco use date assessed: 02/21/24 Dental Screening Dental Screen Date: 12/09/23 HPI f/u diabetes, HTN HPI Details 65 y/o male presents to f/u diabetes, HTN. BP today 118/72, 60p. He is on lisinopril-HCTZ 20-12.5mg daily. Prior A1c 6.8%. A1c today 6.9%. He is on metformin. He notes he could have a better diet. Labs drawn 04/04/25. Reviewed labs with pt. Borderline anemia resolved. Elevated ALT - 25 to 50. PSA 2.42. Reports some sun damaged skin on his head. HPI Comments History of Present Illness Details Documentation assistance for Bill Hollis MD, was provided by Marty Buenrostro,? Appliance Technician on 04/09/2025 at 8:59 AM EST. I, Dr. Hollis, have read, observed, and verified documentation. ?? [facility] Surgical History History of vasectomy Family History Mother No problems noted. Father No problems noted. 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 Current occupational exposures/hazards: No Cognitive needs: No Hearing needs: No Vision needs: No Questionnaire Thrive Questionnaire Date Thrive assessed: 01/02/25 I am a: Patient What is your living situation today?: I have a steady place to live Within the past 12 months, did the food you bought not last and you didn't have the money to get more?: Never true Within the past 12 months, did you worry whether your food would run out before you got money to buy more?: Never true Do you have trouble paying for medicines?: No Do you have trouble getting transportation to medical appointments?: No Do you have trouble paying your heating and electricity bill?: No Do you have trouble taking care of your child, family member or friend?: No Do you have trouble with day-to-day activities such as bathing, preparing meals, shopping, managing finances, etc.?: No Are you currently unemployed and looking for a job?: No Are you interested in more education?: No Please select the resources that you would like help with: None Currently or been in a relationship where the following occur: No concerns reported THRIVE Score: 0 GRAYSON-7 AMB Questionnaire GRAYSON-7 Date GRAYSON - 7 assessed: 01/02/25 Source: Developed by Drs. Quinn Pineda, Marcie Salcedo, Vu Hooker and colleagues, with an educational porsha from [employer]. Review of Systems Const Denies chills, Denies fatigue, Denies fever(s), Denies headache(s) and Denies weakness ENT Denies dizziness and Denies headache(s) Card Denies dyspnea Resp Denies cough, Denies dyspnea, Denies wheezing and Denies other (shortness of breath) Musc Denies numbness and Denies tingling Neuro Denies dizziness, Denies headache(s), Denies numbness, Denies tingling and Denies weakness Psych Denies anxiety and Denies depression Endo Denies fatigue Aller/Immun Denies wheezing Physical exam (Primary Care) Vital Signs: Last Vital Signs Temp 98.0 F 04/09/25 08:46 Pulse 60 04/09/25 08:46 Resp 16 04/09/25 08:46 BP 118/72 04/09/25 08:46 Pulse Ox 95 04/09/25 08:46 Oxygen Delivery Method Room Air 04/09/25 08:46 BMI result Body Mass Index 29.0 Tobacco/Smoking Status: Tobacco use Status Tobacco use date assessed 02/21/24 04/09/25 08:49 Patient Tobacco Use Status Current someday Tobacco 04/09/25 08:49 e-Cigarette/Vaping Use Never Used 04/09/25 08:49 Thrive Assessment: Date of Thrive Assessment Date Thrive assessed 01/02/25 04/09/25 08:49 Currently or been in a relationship where the following occur: No concerns reported Const General: well developed; No acute distress Nutritional Appearance: well nourished Orientation/consciousness: patient oriented x3 HENMT Head: Yes normocephalic and Yes atraumatic Eyes General: appearance normal, both eyes and all related structures Pupils: Equal, round and reactive pupils present EOM: EOMs intact bilaterally Resp Effort & Inspection: normal respiratory effort Auscultation: clear to auscultation bilaterally Cardio Rate: regular rate Rhythm: regular rhythm Heart sounds: S1 normal heart sound present, S2 normal heart sound present, no gallops, no murmurs and no rubs Neuro General: patient oriented x3 and gait normal Cranial nerves: Yes Equal, round and reactive pupils present Psych Affect: normal affect Coding Level of Care Code Est Pt Level 4 (26965) Diagnoses Diabetes type 2, controlled E11.9 Essential hypertension I10 Elevated ALT measurement R74.01 Screening for prostate cancer Z12.5 Neoplasm of uncertain behavior of skin D48.5 Sun-damaged skin L57.8 Borderline anemia D64.9 Assessment & Plan Assessment & Plan (1) Diabetes type 2, controlled: Code(s): E11.9 - Type 2 diabetes mellitus without complications Category: Medical Plan: A1c 6.9%. Controlled. goal is less than 7.0% continue current medication encouraged diabetic diet (2) Essential hypertension: Code(s): I10 - Essential (primary) hypertension Category: Medical Plan: blood pressure is controlled. Goal is less than 140/90 continue lisinopril-hydrochlorothiazide (3) Elevated ALT measurement: Code(s): R74.01 - Elevation of levels of liver transaminase levels Category: Medical Plan: elevated ALT will recheck this with next lab work (4) Screening for prostate cancer: Code(s): Z12.5 - Encounter for screening for malignant neoplasm of prostate Category: Medical Plan: PSA remains within normal range. Had climbed significantly from a prior value. However, patient noted that he had sexual activity the day before. Repeated this and PSA now lower stable will continue annual screening (5) Neoplasm of uncertain behavior of skin: Code(s): D48.5 - Neoplasm of uncertain behavior of skin Category: Medical Plan: neoplasm on scalp and sun-damaged skin referred to dermatology (6) Sun-damaged skin: Code(s): L57.8 - Other skin changes due to chronic exposure to nonionizing radiation Category: Medical Plan: As above (7) Borderline anemia: Code(s): D64.9 - Anemia, unspecified Category: Medical Plan: this appears resolved Orders: Referrals Dermatology Referral D48.5 - Neoplasm of uncertain behavior of skin
[2025-04-09 08:46] VITALS: BP 118/72; PULSE 60; RESP 16; TEMP 36.7; O2SAT 95; BMI 29.0
== END 2025-04-09 09:04 | disposition home or self-care (01) ==
LOC: HO.HMCFM 08:36
PROVIDERS: PCP Family Medicine; Visit Provider Family Medicine
DX: E11.9 Type 2 diabetes mellitus without complications (principal); I10 Essential (primary) hypertension; R74.01 Elevation of levels of liver transaminase levels; Z12.5 Encounter for screening for malignant neoplasm of prostate; D48.5 Neoplasm of uncertain behavior of skin; L57.8 Other skin changes due to chronic exposure to nonionizing radiation; D64.9 Anemia, unspecified

== ENCOUNTER → 2025-04-09 08:35 | Outpatient (BNVA) | payer OTHER, SELFPAY | PROVIDERS: PCP Family Medicine; Visit Provider Family Medicine | DX: E11.9 Type 2 diabetes mellitus without complications (principal); I10 Essential (primary) hypertension; R74.01 Elevation of levels of liver transaminase levels; D48.5 Neoplasm of uncertain behavior of skin; L57.8 Other skin changes due to chronic exposure to nonionizing radiation; D64.9 Anemia, unspecified; Z79.84 Long term (current) use of oral hypoglycemic drugs | CPT/HCPCS: 83036 ==

== ENCOUNTER 2025-07-06 08:31 | Outpatient (REF) | payer OTHER, SELFPAY ==
[2025-07-06 12:32] LABS: Alanine Aminotransferase 21 U/L (0-40); Albumin Level 4.4 g/dL (3.5-5.0); Alkaline Phosphatase 84 U/L (39-117); Anion Gap 11 (12-20); Aspartate Amino Transferase 32 U/L (5-37); Blood Urea Nitrogen 17 mg/dL (9-16); Calcium 9.4 mg/dL (8.4-10.2); Carbon Dioxide 26 mmol/L (22-29); Chloride 106 mmol/L (96-108); Estimated Glomerular Filt Rate > 60; Potassium 4.2 mmol/L (3.3-5.1); Sodium 139 mmol/L (135-145); Total Protein 7.7 g/dL (6.5-8.0)
== END 2025-07-06 08:32 | disposition home or self-care (01) ==
LOC: HO.WFDLDS 08:31
PROVIDERS: Visit Provider Family Medicine
DX: Z00.00 Encounter for general adult medical examination without abnormal findings (principal); R74.01 Elevation of levels of liver transaminase levels
CPT/HCPCS: 36415; 80053

== ENCOUNTER 2025-07-10 08:45 | Outpatient (AMB) | payer OTHER, SELFPAY ==
--- NOTE | 2025-07-10 08:50 | A.OFFPC_ITS ---
Vital Signs 07/10/25 08:51 Height 5 ft 7 in Weight 187 lb BMI 29.3 BP 118/74 Blood Pressure Location Rt brachial Position Sitting Respiration 14 Pulse 62 Pulse Source Pulse Oximeter Temp 98 F Temp Source Oral Pulse Oximetry (%) 98 Oxygen Delivery Method Room Air Intake Visit Reasons: [id number] Intake Note: Diabetes follow up Reducing Salon Attendant Required: No Allergies penicillin G Allergy (Unknown, Verified 07/10/25 08:50) Unknown hayfever Allergy (Mild, Uncoded 07/10/25 08:50) sneezing, watery eyes. Medication List - Last Reconciled 07/10/25 by Bill Hollis MD atorvastatin 20 mg PO DAILY 90 days lisinopril-hydrochlorothiazide 20-12.5 mg 2 tabs PO DAILY metformin One tab, 500mg, in am and 1/2 tab, 250mg, in pm, orally daily 90 days sildenafil 50 mg PO DAILY PRN 30 days terbinafine HCl 1% (Athlete's Foot (terbinafine)) 1 appl topical BID 30 days Tobacco use date assessed: 07/10/25 Fall risk assessment: No Falls in past year Last assessed Fall Risk: 07/10/25 Dental Screening Dental Screen Date: 07/10/25 Did you have a dental visit in the last 12 months?: No Did you have a dental problem in the last 6 months where you did not have access to dental care?: No Was dental information given to patient?: Patient has dentist HPI [id number] HPI Details 65 y/o male presents to f/u diabetes, HT N. Blood pressure today 118/74, 62p. He is on lisinopril-HCTZ 20-12.5mg daily. A1c today 7.2%. He is on metformin. Recent labs show liver enzymes have improved. HPI Comments History of Present Illness Details Documentation assistance for Bill Hollis MD, was provided by Marty Buenrostro,? Sales And Business Development Manager on 07/10/2025 at 9:13 AM KATHLEEN. I, Dr. Hollis, have read, observed, and verified documentation. ?? PFSH Surgical History History of vasectomy Family History Mother No problems noted. Father No problems noted. 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 Current occupational exposures/hazards: No Cognitive needs: No Hearing needs: No Vision needs: No Questionnaire Thrive Questionnaire Date Thrive assessed: 01/02/25 I am a: Patient What is your living situation today?: I have a steady place to live Within the past 12 months, did the food you bought not last and you didn't have the money to get more?: Never true Within the past 12 months, did you worry whether your food would run out before you got money to buy more?: Never true Do you have trouble paying for medicines?: No Do you have trouble getting transportation to medical appointments?: No Do you have trouble paying your heating and electricity bill?: No Do you have trouble taking care of your child, family member or friend?: No Do you have trouble with day-to-day activities such as bathing, preparing meals, shopping, managing finances, etc.?: No Are you currently unemployed and looking for a job?: No Are you interested in more education?: No Please select the resources that you would like help with: None Currently or been in a relationship where the following occur: No concerns reported THRIVE Score: 0 AUDIT C Alcohol Use Questionnaire (AUDIT-C) 1. How often do you have a drink containing alcohol?: 2-4 times a month 2. How many drinks containing alcohol do you have on a typical day when you are drinking?: 3 or 4 3. How often do you have six or more drinks on one occasion?: Never Total Score: 3 GRAYSON-7 AMB Questionnaire GRAYSON-7 Date GRAYSON - 7 assessed: 01/02/25 Source: Developed by Drs. Quinn Pineda, Marcie Salcedo, Vu Hooker and colleagues, with an educational porsha from [employer]. Review of Systems Const Denies chills, Denies fatigue, Denies fever(s), Denies headache(s) and Denies weakness ENT Denies dizziness and Denies headache(s) Card Denies dyspnea Resp Denies cough, Denies dyspnea, Denies wheezing and Denies other (shortness of breath) Musc Denies numbness and Denies tingling Neuro Denies dizziness, Denies headache(s), Denies numbness, Denies tingling and Denies weakness Psych Denies anxiety and Denies depression Endo Denies fatigue Aller/Immun Denies wheezing Physical exam (Primary Care) Vital Signs: Last Vital Signs Temp 98 F 07/10/25 08:51 Pulse 62 07/10/25 08:51 Resp 14 07/10/25 08:51 BP 118/74 07/10/25 08:51 Pulse Ox 98 07/10/25 08:51 Oxygen Delivery Method Room Air 07/10/25 08:51 BMI result Body Mass Index 29.3 Tobacco/Smoking Status: Tobacco use Status Tobacco use date assessed 07/10/25 07/10/25 08:56 Patient Tobacco Use Status Current someday Tobacco 07/10/25 08:56 e-Cigarette/Vaping Use Never Used 07/10/25 08:56 Thrive Assessment: Date of Thrive Assessment Date Thrive assessed 01/02/25 07/10/25 08:56 Currently or been in a relationship where the following occur: No concerns reported Const General: well developed; No acute distress Nutritional Appearance: well nourished Orientation/consciousness: patient oriented x3 HENMT Head: Yes normocephalic and Yes atraumatic Eyes General: appearance normal, both eyes and all related structures Pupils: Equal, round and reactive pupils present EOM: EOMs intact bilaterally Resp Effort & Inspection: normal respiratory effort Auscultation: clear to auscultation bilaterally Cardio Rate: regular rate Rhythm: regular rhythm Heart sounds: S1 normal heart sound present, S2 normal heart sound present, no gallops, no murmurs and no rubs Neuro General: patient oriented x3 and gait normal Cranial nerves: Yes Equal, round and reactive pupils present Psych Affect: normal affect Results AMB Hemoglobin A1c AMB Hemoglobin A1c 7.2 % Last Edit by Miranda Marcos CMA on 07/10/25 09:02 Results Reviewed Results Reviewed: Laboratory Last Values Hgb A1c (Clinic) 7.2 % (4.0-6.0) H 07/10/25 08:56 Coding Level of Care Code Est Pt Level 4 (83867) Diagnoses Essential hypertension I10 Diabetes type 2, controlled E11.9 Elevated ALT measurement R74.01 Assessment & Plan Assessment & Plan (1) Essential hypertension: Code(s): I10 - Essential (primary) hypertension Category: Medical Plan: Blood pressure is well controlled. Goal is less than 140/90 Continue current medication (2) Diabetes type 2, controlled: Code(s): E11.9 - Type 2 diabetes mellitus without complications Category: Medical Plan: A1c has climbed to 7.2%. Goal is less than 7.0% Will increase metformin from 500 mg q.a.m. and 250 mg q.p.m. to 500 mg b.i.d. Continue diabetic diet He is due for diabetic retinal exam and will call his job development specialist. No wounds or abrasions on feet (3) Elevated ALT measurement: Code(s): R74.01 - Elevation of levels of liver transaminase levels Category: Medical Plan: Patient had elevated ALT in March; . Now back within normal range Encouraged weight loss and good hydration Orders: Orders AMB Hemoglobin A1c Today E11.9 - Type 2 diabetes mellitus without complications
[2025-07-10 08:51] VITALS: BP 118/74; PULSE 62; RESP 14; TEMP 36.6; O2SAT 98; BMI 29.3
== END 2025-07-10 09:16 | disposition home or self-care (01) ==
LOC: HO.HMCFM 08:46
PROVIDERS: PCP Family Medicine; Visit Provider Family Medicine
DX: I10 Essential (primary) hypertension (principal); E11.9 Type 2 diabetes mellitus without complications; R74.01 Elevation of levels of liver transaminase levels

== ENCOUNTER → 2025-07-10 08:45 | Outpatient (BNVA) | payer OTHER, SELFPAY | PROVIDERS: PCP Family Medicine; Visit Provider Family Medicine | DX: I10 Essential (primary) hypertension (principal); E11.9 Type 2 diabetes mellitus without complications; R74.01 Elevation of levels of liver transaminase levels; Z79.84 Long term (current) use of oral hypoglycemic drugs | CPT/HCPCS: 83036 ==

== ENCOUNTER 2025-08-29 08:40 | Outpatient (AMB) | payer OTHER, SELFPAY ==
--- NOTE | 2025-08-29 08:50 | A.OFFVIS_ITS ---
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 Per last OV in 2020, no prior colo mentioned. CC: Pt denies any GI sx or concerns at this time. Confirms that he never actually proceeded with the procedure per the last screening. Social Media Intern Required: No Accompanied by: Self / Same As Patient Allergies penicillin G Allergy (Unknown, Verified 08/29/25 08:51) Unknown hayfever Allergy (Mild, Uncoded 08/29/25 08:51) sneezing, watery eyes. HPI HPI Colonoscopy Screening: Details: 65 year old? male with past medical history of transaminitis, hypertension, hyperlipidemia, diabetes is here today for pre colonoscopy screening.? Patient was sent to us by his PCP.? This is his first colonoscopy screening.? Patient denies any gastrointestinal symptoms in the past or at present.? Denies any personal or family history of gastrointestinal disease, colon polyps, or CRC.? Denies history of difficulty with sedation or anesthesia in the past.? Negative for history of sleep apnea.? Denies any history of cardiac, renal, pulmonary, or hepatic disease.?? No history of infectious? diseases like hepatitis A, B, C, HIV or tuberculosis.? Patient is not on any anticoagulation [facility] Surgical History History of vasectomy Family History Mother No problems noted. Father No problems noted. 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 Denies any issues with anesthesia in the past.? Denies any history of sleep apnea.? No history infectious diseases in the past or present.? Not on any anticoagulation therapy.? No family or personal history of colon cancer or polyps.? Patient denies melena, hematochezia, unintentional weight loss or ribbon like stools.? Discussed at length the pre-procedure,? prep, diet & medications as well as what to expect prior, during and after the procedure.?? Stressed the importance of good bowel prep.? Recommended the use of Vaseline or Calmoseptine OTC & baby wipes with bowel movements to promote comfort.? ?Patient verbalizes understanding and agrees to plan of care.? He was given the opportunity to ask questions and all questions answered.? We will see him after the procedure.? Orders: Referrals GI Procedure Notification Z12.11 - Encounter for screening for malignant neoplasm of colon Medications: New polyethylene glycol 3350 (Miralax) As directed by gastroenterology department at [facility] 238 grams PO ONCE 238 grams 0RF Z12.11 - Encounter for screening for malignant neoplasm of colon bisacodyl (Dulcolax (bisacodyl)) take 4 tabs at noon the day before your colonoscopy 20 mg (4 x 5 mg) PO ONCE 4 tabs 0RF constipation 1 day Z12.11 - Encounter for screening for malignant neoplasm of colon Coding Level of Care Code New Pt Level 3 (94552) Diagnoses Encounter for screening colonoscopy Z12. Time Spent (min) 40 Comment 30 minutes spent with patient and additional 10 minutes spent reviewing his records
[2025-08-29 08:51] VITALS: BP 132/70; PULSE 66; O2SAT 96; BMI 29.0
== END 2025-08-29 10:21 | disposition home or self-care (01) ==
LOC: HO.HGI 08:41
PROVIDERS: PCP Family Medicine; Visit Provider Nurse Practitioner Family
DX: Z01.818 Encounter for other preprocedural examination (principal); Z12.11 Encounter for screening for malignant neoplasm of colon
CPT/HCPCS: S0285